=== PATIENT | female | born 1960 ===

== ENCOUNTER 2024-04-25 04:40 | Day surgery (SDC) | payer OTHER ==
[2024-04-24 09:58] VITALS: BMI 37.3
[2024-04-25 09:23] VITALS: TEMP 97.7
[2024-04-25 11:48] VITALS: BP 125/75; PULSE 69; RESP 16
== END 2024-04-25 10:01 | disposition home or self-care (01) ==
LOC: JASU-ENDO 04:40
PROVIDERS: ATTEND Internal Medicine Gastroenterology
PROC: 0DBN8ZX Excision of Sigmoid Colon, Via Natural or Artificial Opening Endoscopic, Diagnostic (ICD-10-PCS; principal; 2024-04-25 09:00)
DX: Z12.11 Encounter for screening for malignant neoplasm of colon (principal); K63.5 Polyp of colon; K64.8 Other hemorrhoids; K57.30 Diverticulosis of large intestine without perforation or abscess without bleeding; K62.89 Other specified diseases of anus and rectum
CPT/HCPCS: 88305-TC